=== PATIENT | male | born 1950 | race Caucasian/White ===

== ENCOUNTER 2018-09-05 18:15 | Inpatient (IN) ==
[2018-09-05] MEDS ORDERED: NITROGLYCERIN 2% OINT 1 INCH/GM PACK TOP STA (18:39)
[2018-09-05] MEDS ORDERED: ONDANSETRON 4 MG/2 ML VIAL IV STA (18:39)
[2018-09-05] MEDS ORDERED: MORPHINE 4 MG/1 ML VIAL IV STA (18:39)
[2018-09-05] MEDS ORDERED: ASPIRIN 325 MG TABLET PO STA (18:39)
[2018-09-05 19:13] LABS: Basophils # 0.1 10*3/uL (0.0-0.2); Basophils % 0.6 % (0.0-0.8); Eosinophils # 0.1 10*3/uL (0.0-0.87); Eosinophils % 1.5 % (0.00-10.9); Hematocrit 42.5 VOL% (42.0-52.0); Hemoglobin 13.8 GM/DL (14.0-18.0); Immature Granulocytes % 0.4 %; Immature Granulocytes Absolute 0.03 #; Lymphocytes # 0.6 10*3/uL (1.4-4.0); Lymphocytes % 7.4 % (21.2-54.2); Mean Corpuscular HGB Conc 32.5 GM/DL (32-36); Mean Corpuscular Hemoglobin 29 PG (27-34); Mean Corpuscular Volume 89.1 FL (87-102); Mean Platelet Volume 11.6 FL (9.6-12.0); Monocytes # 0.7 10*3/uL (0.11-0.8); Monocytes % 8.6 % (1.7-12.7); Neutrophils # 6.5 10*3/uL (1.4-7.4); Neutrophils % 81.5 % (38.7-73.9); Platelet Count 200 T/CUMM (130-400); Red Blood Count 4.77 MC/CUMM (3.8-5.5); Red Cell Distribution Width 13.7 % (9.3-17.3)
[2018-09-05 19:33] LABS: Albumin 3.6 G/DL (3.4-5.0); Bilirubin,Total 2.2 MG/DL (0.2-1.0); Calcium 8.2 MG/DL (8.5-10.1); Osmolality,Calculated 284.1 MOS/KG (273-304); Potassium 3.6 MMOL/L (3.5-5.1); Total Protein 7.4 G/DL (6.4-8.3)
[2018-09-05 19:35] LABS: Lactic Acid 2.1 MMOL/L (0.4-2.0)
[2018-09-05] MEDS ORDERED: LEVOFLOXACIN INJ 500 MG in PREMIX 1 EACH IV STA (20:01)
[2018-09-05] MEDS ORDERED: SODIUM CHLORIDE 0.9% 1,000 ML IV STA (20:01)
[2018-09-05] MEDS ORDERED: MORPHINE 4 MG/1 ML VIAL IV PRN (20:41)
[2018-09-05] MEDS ORDERED: guaiFENesin/DM ER 600-30 MG TABLET PO PRN (20:41)
[2018-09-05] MEDS ORDERED: ACETAMINOPHEN 325 MG TABLET PO PRN (20:41)
[2018-09-05] MEDS ORDERED: ONDANSETRON 4 MG/2 ML VIAL IV PRN (20:41)
[2018-09-05] MEDS ORDERED: POLYETHYLENE GLYCOL POWDER 17 GM PACK PO PRN (23:51)
[2018-09-06] MEDS: cefTRIAXone 1,000 MG in SYRINGE 1 EACH IV SCH ×2 (00:06→21:12)
[2018-09-06] MEDS: methylPREDNISolone SOD SUC 40 MG/1 ML VIAL IV SCH ×4 (00:06→23:02)
[2018-09-06] MEDS: ZALEPLON 5 MG CAPSULE PO PRN ×2 (00:06→21:13)
[2018-09-06] MEDS: DOCUSATE SODIUM 100 MG CAPSULE PO PRN ×2 (00:06→21:13)
[2018-09-06] MEDS: AZITHROMYCIN 250 MG TABLET PO SCH ×2 (00:07→21:13)
[2018-09-06] MEDS: POTASSIUM CHLORIDE 20 MEQ TABLET PO SCH ×4 (00:07→21:13)
[2018-09-06] MEDS: SODIUM CHLORIDE 0.9% 1,000 ML IV SCH ×3 (00:46→18:03)
[2018-09-06] MEDS: LEVOTHYROXINE 150 MCG TABLET PO SCH (06:10)
[2018-09-06 08:10] LABS: Calcium 7.7 MG/DL (8.5-10.1); Osmolality,Calculated 284.3 MOS/KG (273-304); Potassium 3.9 MMOL/L (3.5-5.1)
[2018-09-06] MEDS: ENOXAPARIN 30 MG/0.3 ML SYRINGE SUBCUT SCH (09:48)
[2018-09-06] MEDS: hydroCHLOROthiazide 12.5 MG CAPSULE PO SCH (09:49)
[2018-09-06] MEDS: PANTOPRAZOLE 40 MG TABLET PO SCH (09:50)
[2018-09-06] MEDS: IRBESARTAN 150 MG TABLET PO SCH ×2 (09:50→14:49)
[2018-09-06 14:02] LABS: INR 1.1; PT Patient Result 11.5 SECS; Partial Thromboplastin Time 31.6 SECS (0-40)
[2018-09-06 18:35] LABS: Lymphocytes,Pleural Fluid 84 %; Monocytes,Pleural Fluid 10 %; Neutrophils,Pleural Fluid 6 %
[2018-09-06] MEDS ORDERED: NON-FORMULARY MEDICATION (Omeprazole [Prilosec] 20 MG) PO SCH (19:00)
[2018-09-06 20:15] LABS: RBC,Pleural Fluid 9318 T/CUMM
[2018-09-06] MEDS: amLODIPine 2.5 MG TABLET PO SCH (21:13)
[2018-09-06] MEDS: PRAVASTATIN 40 MG TABLET PO SCH (21:13)
[2018-09-07] MEDS: SODIUM CHLORIDE 0.9% 1,000 ML IV SCH ×3 (04:43→22:08)
[2018-09-07 05:48] LABS: Hematocrit 39.3 VOL% (42.0-52.0); Hemoglobin 12.6 GM/DL (14.0-18.0); Immature Granulocytes % 0.5 %; Immature Granulocytes Absolute 0.06 #; Lymphocytes # 0.5 10*3/uL (1.4-4.0); Lymphocytes % 4.3 % (21.2-54.2); Mean Corpuscular HGB Conc 32.1 GM/DL (32-36); Mean Corpuscular Hemoglobin 28 PG (27-34); Mean Corpuscular Volume 88.5 FL (87-102); Mean Platelet Volume 12.1 FL (9.6-12.0); Monocytes # 0.3 10*3/uL (0.11-0.8); Monocytes % 2.8 % (1.7-12.7); Neutrophils # 10.5 10*3/uL (1.4-7.4); Neutrophils % 92.4 % (38.7-73.9); Platelet Count 200 T/CUMM (130-400); Red Blood Count 4.44 MC/CUMM (3.8-5.5); Red Cell Distribution Width 13.8 % (9.3-17.3); White Blood Count 11.4 T/CUMM (4-12)
[2018-09-07 06:40] LABS: Band Neutrophils 1 % (0-10); Hypochromasia 1+; Lymphocytes 3 % (20-55); Ovalocytes Slight; Platelet Estimate Adequate; Segmented Neutrophils 91 % (50-85); Total Cells Counted 100
[2018-09-07 06:48] LABS: Calcium 7.9 MG/DL (8.5-10.1); Osmolality,Calculated 289.1 MOS/KG (273-304)
[2018-09-07] MEDS ORDERED: PROMETHAZINE 25 MG/1 ML VIAL IM ONE (07:00)
[2018-09-07] MEDS ORDERED: MIDAZOLAM 2 MG/2 ML VIAL ONE (07:01)
[2018-09-07 07:03] LABS: Troponin I < 0.015 NG/ML (0.00-0.045)
[2018-09-07] MEDS ORDERED: LIDOCAINE 2% 20 ML VIAL RESP TX ONE (07:30)
[2018-09-07] MEDS ORDERED: LIDOCAINE 1% 20 ML VIAL MISC INJ ONE (07:30)
[2018-09-07] MEDS ORDERED: LIDOCAINE 2% VISCOUS 100 ML BOTTLE SWISH/SPIT ONE (07:30)
[2018-09-07] MEDS ORDERED: MIDAZOLAM 2 MG/2 ML VIAL IV ONE (07:30)
[2018-09-07] MEDS: LEVOTHYROXINE 150 MCG TABLET PO SCH ×2 (13:13→14:32)
[2018-09-07] MEDS: methylPREDNISolone SOD SUC 40 MG/1 ML VIAL IV SCH ×3 (13:14→21:21)
[2018-09-07] MEDS: ENOXAPARIN 30 MG/0.3 ML SYRINGE SUBCUT SCH ×2 (13:15→14:30)
[2018-09-07] MEDS: hydroCHLOROthiazide 12.5 MG CAPSULE PO SCH ×2 (13:15→14:32)
[2018-09-07] MEDS: IRBESARTAN 150 MG TABLET PO SCH ×2 (13:15→16:13)
[2018-09-07] MEDS: POTASSIUM CHLORIDE 20 MEQ TABLET PO SCH ×3 (13:15→21:18)
[2018-09-07] MEDS: PANTOPRAZOLE 40 MG TABLET PO SCH (13:16)
[2018-09-07] MEDS: PRAVASTATIN 40 MG TABLET PO SCH (21:18)
[2018-09-07] MEDS: amLODIPine 2.5 MG TABLET PO SCH (21:18)
[2018-09-07] MEDS: AZITHROMYCIN 250 MG TABLET PO SCH (21:18)
[2018-09-07] MEDS: ZALEPLON 5 MG CAPSULE PO PRN (21:18)
[2018-09-07] MEDS: cefTRIAXone 1,000 MG in SYRINGE 1 EACH IV SCH (21:26)
[2018-09-08] MEDS: LEVOTHYROXINE 150 MCG TABLET PO SCH (06:36)
[2018-09-08] MEDS: methylPREDNISolone SOD SUC 40 MG/1 ML VIAL IV SCH (06:36)
[2018-09-08 08:22] VITALS: BP 157/51
[2018-09-08] MEDS: ENOXAPARIN 30 MG/0.3 ML SYRINGE SUBCUT SCH (08:58)
[2018-09-08] MEDS: POTASSIUM CHLORIDE 20 MEQ TABLET PO SCH (08:59)
[2018-09-08] MEDS: hydroCHLOROthiazide 12.5 MG CAPSULE PO SCH (08:59)
[2018-09-08] MEDS: IRBESARTAN 150 MG TABLET PO SCH (08:59)
[2018-09-08] MEDS: PANTOPRAZOLE 40 MG TABLET PO SCH (08:59)
[2018-09-08] MEDS: SODIUM CHLORIDE 0.9% 1,000 ML IV SCH (09:01)
== END 2018-09-08 11:00 | disposition home or self-care (01) | DRG 194 ==
LOC: N.ED 18:15 → N.EDINP 20:41 → N.TELEN 22:11
PROVIDERS: ADMIT Internal Medicine; ATTEND Internal Medicine
PROC: BRONCHB (2018-09-07 07:35)